=== PATIENT | female | born 1995 | race Caucasian/White ===

== ENCOUNTER 2016-10-18 20:13 | Emergency (ER) | payer OTHER | END 2016-10-19 00:51 | disposition home or self-care (01) | LOC: ER 20:13 | DX: S61.011A Laceration without foreign body of right thumb without damage to nail, initial encounter (principal); W26.8XXA Contact with other sharp object(s), not elsewhere classified, initial encounter; F17.210 Nicotine dependence, cigarettes, uncomplicated; Z88.5 Allergy status to narcotic agent; Z88.0 Allergy status to penicillin | CPT/HCPCS: 99282 ==